=== PATIENT | female | born 2005 | race Caucasian/White ===

== ENCOUNTER 2025-08-15 23:41 | Emergency (ER) | payer OTHER, SELFPAY ==
--- NOTE | ~2025-08-15 | XR_ITS ---
CLINICAL HISTORY: cough 1 view chest x-ray Comparison: None provided Findings: No consolidation or effusion. Heart size is normal. No acute fracture. IMPRESSION: 1. No acute findings. This document has been electronically signed by: Dian Valencia MD on 08/16/2025 01:47:32
--- OUTSIDE RECORDS SUMMARY | 2025-08-15 23:41 | XMS_ITS | Encounter Summary ---
Author Organization [facility] Address [address] [place] [address] Phone Care Team Providers Care Can Sealer Name Role Phone Agnes Garcia MD Primary Care Provider [phone] Reason for Visit * Reason Comments ED Admission Encounter Details Date Type Department Care Team ([facility] Contact Info) Description 08/15/2025 11:41 PM EST - Present Emergency [facility] - Patient Ping Social History Tobacco Use [...] last 12 months, has t he electric, gas, oil, or water company threatened to shut off your services in [...] PM EDT documented as of this encounter Plan of Treatment Not on file documented as of this encounter Visit Diagnoses Not on filedocumented in this encounter Care Teams Can Sealer Relationship Specialty Start Date End Date Agnes Garcia MD [address] [place] [address] PCP - General Pediatrics 05/03/25 documented as of this encounter
[2025-08-15 23:43] VITALS: BP 118/58; PULSE 120; RESP 18; TEMP 38.1; O2SAT 97; BMI 35.7
--- OUTSIDE RECORDS SUMMARY | 2025-08-16 00:32 | XMS_ITS | Encounter Summary ---
Author Organization [facility] Address [address] [place] [address] Phone Care Team Providers Care Carpet Yarn Winder Operator Name Role Phone Agnes Garcia MD Primary Care Provider [phone] Encounter Details Date Type Department Care Team (Late st Contact Info) Description 03/01/2018 Conversion Encounter [facility] [address] [address] Mingo Ford DO [address] [place] [address] Social History Tobacco Use Types Packs/Day Years Used Date Smoking Tobacco: Never Assessed Comments Unknown Sex and Gender Information Value Date Recorded Sex Assigned at Not on file Legal Sex Female 6:10 PM EDT Gender Identity Not on file Sexual Orientation Straight 05/23/2021 12 :39 PM EDT documented as of this encounter Plan of Treatment Not on file documented as of this encounter Visit Diagnoses Not on filedocumented in this encounter Care Teams Carpet Yarn Winder Operator Relationship Specialty Start Date End Date Agnes Garcia MD [address] [place] [id number] PCP - General Pediatrics 05/03/25 documented as of this encounter
--- OUTSIDE RECORDS SUMMARY | 2025-08-16 00:32 | XMS_ITS | Clinical Summary ---
Author Organization [facility] Address [address] [place] [address] Phone Care Team Providers Care Buggy Loader Name Role Phone Agnes Garcia MD Primary Care Provider [phone] Allergies Active Allergy Reactions Criticality Noted Date Comments Environmental Low 04/23/2019 Cats dogs Medications ondansetron 4 MG tablet TK 1 T PO Q 4 TO 6 H PRF NAUSEA 0 9 Active Riboflavin (Vitamin B-2) 100 MG tabletIndicatio ns:Migraine with aura and without status migrainosus, not intractable Take 200 mg by mouth 2 (two) times a day. 120 tablet 2 2 Active Additional Information Patient not taking.Reported on 05/03/2025 Magnesium 500 MG capsuleIndicati ons:Chronic migraine with aura Take 1 capsule by mouth daily. 90 capsule 3 3 Active Additional Information Patient not taking.Reported on 05/03/2025 norethindrone (Incassia) 0.35 MG tabletIndicatio ns:Irregular periods Take 1 tablet (0.35 mg total) by mouth daily. 28 tablet 12 4 Active Additional Information Patient not taking.Reported on 05/03/2025 ferrous sulfate 325 (65 Fe) MG tabletIndicatio ns:Anemia, unspecified type TAKE 1 TABLET BY MOUTH TWICE A DAY 180 tablet 4 Active Additional Information Patient not taking.Reported on 05/03/2025 triamcinolone 0.1 % creamIndication s:Intrinsic atopic dermatitis Apply topically 2 (two) times a day as needed for irritation or rash. 15 g 1 Active Additional Information Patient not taking.Reported on 05/03/2025 omeprazole 20 MG delayed-release capsuleIndicati ons:Gastroesoph ageal reflux disease without esophagitis Take 1 capsule (20 mg total) by mouth daily. Take medicine one hour before eating. 30 capsule 2 5 08/01/20 25 Active Problems Problem Noted Date Diagnosed Date Anemia 11/13/2023 Assessment & Plan (05/15/2024 2:09 PM EDT): 11.3 today- reassuring! Irregular periods 05/23/2021 Assessment & Plan (07/05/2022 1:49 PM EDT): POP, prescribed elsewhere. Assessment & Plan (05/23/2021 12:35 PM EDT): Will start with screening labs to make sure no underlying cause. Discussed hormonal options to regulate and control symptoms, due to aura migraines would stay away from estrogen containing products. Will call with results and decide if she wants to start anything. Resolved Problems Problem Noted Date Diagnosed Date Resolved Date Rubella non-immune status, antepartum 11/13/2023 05/15/2024 PROM (premature rupture of membranes) 11/13/2023 05/15/2024 11/13/2023 05/15/2024 Maternal varicella, non-immune 11/13/2023 05/15/2024 LGA (large for gestational age) infant 11/13/2023 05/15/2024 Chronic migraine with aura 05/08/2022 0 05/15/2024 Overview (07/11/2022): Normal brain mri 06/2022. Assessment & Plan (07/05/2022 1:48 PM EDT): Had vision test done at eye doctor's-still hasnt ordered glasses yet. They felt migraines were not from her vision. More severe and persistent the last few months. Have been occurring for several years now. 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 Occur when she changes position when she wakes up in the morning.Wakes up with one. Throbbing, occipital or frontal. +photophobia, phonophobia. Not waking overnight with a GARLAND. No vomiting. hasnt taken the mag and b vitamin consistently. Dad with history of migraines as well. Discussed option of pursuing imaging with an MRI due to persistent daily headaches particularly because they occur right when she wakes up in the morning with position change. Dad agrees, will have our office schedule. Assessment & Plan (05/08/2022 4:42 PM EDT): Yana has been experiencing migraines for years now but they have been worsening in severity over the last year. I am concerned with the fact that she is having persistent morning headaches and headaches that worsening with activity. She has an eye exam scheduled for 05/13 and will keep me updated on the results of that visit. We discussed eye strain as having a role in headaches but I wouldn't imagine they would be causing early AM headaches. We reviewed the possibility of rebound headaches with chronic nsaid use. Given the severity, duration, and red flag in her history, I recommended ordering brain MRI. Grandmother is interested but she would first like to see how the eye exam goes before scheduling it. In the meantime, I will send a prescription for magnesium and b2 to take daily. Discussed adequate sleep, hydration, limiting screens, being aware of triggers and resting in dark room if possible at onset. Can use tylenol or ibuprofen as needed but be cautious about consistent use of it. Constipation 04/23/2019 05/15/2024 Assessment & Plan (04/23/2019 9:38 AM EDT): Controlled by diet Body mass index, pediatric, 85th percentile to less than 95th percentile for age 0704/23/201909/2019 Encounters Date Type Department Care Team Description 08/15/2025 11:41 PM EST - Present Emergency [facility] - Patient Ping 07/17/2025 11:22 AM EDT - 07/17/2025 4:20 PM EDT Emergency [facility] - Patient Ping 05/19/2025 [facility]phone [facility] [address] [address] Agnes Garcia MD No Show from Last 3 Months Immunizations Immunization Administration Dates Next Due DTaP 03/08/2011,07/21/2007 DTaP / Hep B / IPV 05/09/2006,03/13/2006, 006 HPV Vaccine 9 Valent 04/23/2019,12/09/2017 Hep A, ped/adol 07/21/2007,12/08/2006 Hib (PRP-T) 07/21/2007, 6,03/13/2006,01/10 IPV 03/08/2011 Influenza, injectable, MDCK, preservative free, quadrivalent 09/22/2020 Influenza, injectable, quadrivalent 08/05/2016,1 10/16/2013,07/01/2012 Influenza, injectable, quadr ivalent, preservative free 12/09/2017,07/19/2013,11/04/2011 Influenza, injectable, triva lent, preservative free 08/20/2008,08/04/2007,10/16/2006,09/09,08/07/2006 MMR 03/07/2010 MMRV 12/08/2006 Meningococcal B Bexsero 05/15/2024 Meningococcal Conj (Menactra) MCV4P 12/09/2017 Meningococcal Conj (Menveo) MCV4O 07/05/2022 PPD Test 04/23/2019 Pneumococcal Conjugate 07/21/2007,2005,03/13/2006,01/10 Pneumococcal Conjugate 13-Valent 03/07/2010 Tdap 12/09/2017 Varicella 03/07/2010 Family History Medical History Relation Name Comments No Known Problems Brother No Known Problems Father Alcoholism Maternal Grandfather Hypertension Maternal Grandfather Alcoholism Maternal Grandmother Diabetes Maternal Grandmother Hypertension Maternal Grandmother Alcoholism Mother Hypertension Mother Cancer Paternal Grandfather Relation Name Status Comments Brother Alive step brother Father Alive healthy age: 35 Father's Brother Alive healthy Father's Sister Alive healthy Maternal Grandfather Alive ETOH ag e: 49 diagnosed with Hypertension Maternal Grandmother Alive ETOH ag e: 49 diagnosed with Hypertension, DMII WO CMP NT ST UNCNTR Mother Alive healthy ulcer E IVAN and HTN age: 30 Other Alive Siblings: Healt hy 1/2 step-brother and another on the way Paternal Grandfather Alive cancer, bladder age: 51 diagnosed with MALIGNANT NEOPLASM NOS Paternal Grandmother Alive calcium deposits on her back age: 47 Social History Tobacco Use Types Packs/Day Years Used Date Smoking Tobacco: Never Smokeless Tobacco: Never Tobacco Cessation:Counseling Given: Not Answered Alcohol Use Standard Drinks/Week Comments Never 0 [...] Orientation Straight 05/23/2021 12 :39 PM EDT Last Filed Vital Signs Vital Sign Reading Time Taken Comments Blood Pressure 122/90 11/25/2024 5:55 PM EST Pulse 92 04/13/2024 12:58 PM EDT Temperature 36.3 C (97.4 F) 05/03/2025 10:39 AM EDT Respiratory Rate - - Oxygen Saturation 98% 04/13/2024 12: 58 PM EDT Inhaled Oxygen Concentration - - Weight 87.9 kg (193 lb 12.8 oz) 025 10:39 AM EDT Height 158.8 cm (5' 2.5 ) 05/15/2024 1:53 PM EDT Body Mass Index 34.88 05/15/2024 1:53 PM EDT Plan of Treatment Health Maintenance Due Date Last Done Comments HIV Screening 2020 Hepatitis C Screening 2023 Chlamydia and Gonorrhea Screening 10/13/2024 05/15/2024, 11/21/2022, 05/23/2021 Men B Vaccine (2 of 2 - Bexs ero SCDM 2-dose series) 11/15/2024 05/15/2024 Influenza Vaccines (#1) 2025 07/30/20 23, 09/22/2020, 12/09/2017, Additional history exists COVID-19 Vaccine (3 - 2024-2 6 season) 2025 05/27/2021, 04/20/2021 DTaP,Tdap,and Td Vaccines (8 - Td or Tdap) 08/21/2033 08/21/2023, 12/09/2017, 03/08/2011, Additional history exists Hepatitis B Vaccines Completed 05/09/2006, 03/13/2006, 01/10/2006 HIB Vaccines Completed 07/21/2007, 04/13, 03/13/2006, Additional history exists Hepatitis A Vaccines Completed 07/21/2007, 12/08/19 07 Pneumococcal Vaccine Completed 03/07/2010, 07/21/2007, 05/09/2006, Additional history exists Varicella Vaccines Completed 03/07/2010, 12/08/2006 IPV Vaccines Completed 03/08/2011, 04/13, 03/13/2006, Additional history exists HPV Vaccines Completed 04/23/2019, 12/09/2017 Meningococcal Vaccine Completed 07/05/2022, 018 MMR Vaccines Completed 09/18/2023, 02/11, 12/08/2006 Procedures * The patient is currently admitted. The information in this section might not be complete until the patient is discharged.Due to [place] Diversion law, this organization might not be sharing sensitive test results. Procedure Name Priority Date/Time Associated Diagnosis Comments CHLAMYDIA AND GONORRHEA, AMPLIFIED Routine 05/15/2024 2:38 PM EDT Encounter for screening examination for sexually transmitted disease from Last 3 Months or Most Recently Relevant to Health Maintenance Results * Due to [place] Diversion law, this organization might not be sharing sensitive test results. * Chlamydia and Gonorrhoea, Amplified (Urine) (05/15/2024 2:38 PM EDT) C trach HEATHER Negative Negative [facility] N gonorrhoeae HEATHER Negative Negative [facility] Urine (Urine, Random (not clean void)) 05/15/2024 2:38 PM EDT 05/15/2024 Comment:Urine, Rando Narrative [facility] - 05/17/2024 5:06 PM EDT Performed at: 01 - [facility] [address], [address], [place], [place] [id number] Loader Unloader: Bhupendra Rehman MD, Phone: [phone] us Agnes Garcia MD LAB MICROBIOLOGY - GENERAL ORD ERABLES Final Result Performing Organization Address City/State/[facility] Co de Phone Number [facility] [address] [place] [address] from Last 3 Months or Most Recently Relevant to Health Maintenance [facility] Address: [address] [address] [place] [address] [facility] NON PCC [facility] NON PCC [facility]CO [facility] Address: [address] [address] [place] [address] Care Teams Buggy Loader Relationship Specialty Start Date End Date Agnes Garcia MD [address] [place] [id number] PCP - General Pediatrics 05/03/25
--- OUTSIDE RECORDS SUMMARY | 2025-08-16 00:32 | XMS_ITS | Clinical Summary ---
Author Organization [facility] ity Address [address] [place] [address] Care Team Providers Care Infrastructure Consultant Name Role Phone Brenna Wilder VEGETABLE FARMING SUPERVISOR Primary Care Provider [phone] Social History Tobacco Use Types Packs/Day Years Used Date Smoking Tobacco: Never Assessed Comments Unknown Sex and Gender Information Value Date Recorded Sex Assigned at Not on file Legal Sex Female 8:43 PM EST Gender Identity Not on file Sexual Orientation Not on file Plan of Treatment Health Maintenance Due Date Last Done Comments Gonorrhea/Chlamydia Screening 2005 Varicella Vaccines (1 of 2 - 13+ 2-dose series) 2018 HPV Vaccines (1 - 3-dose series) 2020 Meningococcal B Vaccine (1 o f 2 - Standard) 2021 Depression Screening 10/13/2024 DTaP,Tdap,and Td Vaccines (1 - Tdap) 2024 Hepatitis B Vaccines (1 of 3 - 19+ 3-dose series) 2024 COVID-19 Vaccine (1 - 2023-2 5 season) 2025 Influenza Vaccine (#1) 2025 RSV Immunization Adult Patie nts (1 - 1-dose 75+ series) 2080 HIB Vaccines Aged Out No longer eligi ble based on patient's age to complete this topic Hepatitis A Vaccines Aged Out No long er eligible based on patient's age to complete this topic IPV Vaccines Aged Out No longer eligi ble based on patient's age to complete this topic MMR Vaccines Aged Out No longer eligi ble based on patient's age to complete this topic Meningococcal ACWY Vaccine Aged Out N o longer eligible based on patient's age to complete this topic Pneumococcal Vaccine: Pediat rics (0 to 5 Years) and At-Risk Patients (6 to 49 Years) Aged Out No longer eligible b ased on patient's age to complete this topic RSV Immunization Patients Un bhargavi 20 months Aged Out No longer eligible b ased on patient's age to complete this topic Care Teams Infrastructure Consultant Relationship Specialty Start Date End Date Brenna Wilder FNP [address] [place] [address] [place] [id number] PCP - General 04/04/23
[2025-08-16 00:34] LABS: MANUAL DIFF FLAG NO
[2025-08-16 00:36] LABS: Hematocrit 38.7 % (37.0-47.0); Hemoglobin 12.7 g/dl (12.0-16.0); Imm Gran Abs Auto 0.02 X10*3/uL (0.00-0.03); Imm Gran Pct Auto 0.4 % (0.0-0.4); Lymphocytes Absolute Auto 0.6 X10*3/uL (1.2-4.9); Mean Corpuscular HGB Conc 32.8 g/dl (31.0-35.0); Mean Corpuscular Hemoglobin 27.1 pg (27.0-33.0); Mean Corpuscular Volume 82.5 fL (80.0-98.0); NRBC Abs Auto 0.000 X10*3/uL (0.0-0.012); NRBC Pct Auto 0.0 /100WBC (0.0-0.2); Platelet Count 177 X10*3/uL (160-400); Red Blood Count 4.69 X10*6/uL (4.20-5.50); White Blood Count 5.1 X10*3/uL (4.8-10.8)
[2025-08-16 00:50] VITALS: TEMP 38.7
[2025-08-16 00:55] LABS: Appearance Urine Clear; Glucose Urine UA Negative (Negative); PH 5.5 (5.0-9.0); Specific Gravity - Urine 1.015 (1.005-1.025)
[2025-08-16 00:58] LABS: Anion Gap 13 (12-20); Calcium 9.3 mg/dL (8.4-10.2); Carbon Dioxide 23 mmol/L (22-29); Chloride 108 mmol/L (96-108); Potassium 3.6 mmol/L (3.3-5.1); Sodium 140 mmol/L (135-145); Total Protein 8.2 g/dL (6.5-8.0)
[2025-08-16 01:04] LABS: Alanine Aminotransferase 35 U/L (0-31); Albumin Level 5.1 g/dL (3.5-5.0); Alkaline Phosphatase 58 U/L (39-117); Aspartate Amino Transferase 27 U/L (5-31); Blood Urea Nitrogen 9 mg/dL (9-16); Creatinine Clr Calc Pharmacy 115.3; Estimated Glomerular Filt Rate > 60; Magnesium 2.0 mg/dL (1.6-2.6)
[2025-08-16 01:15] LABS: COVID-19 Test Negative (Negative); IDNOW Serial# 55D5AD1C
[2025-08-16 01:18] LABS: IDNOW Serial# 58CA691E; Influenza B2 Negative (Negative)
--- NOTE | 2025-08-16 01:48 | ED.GENADULT ---
HPI - General Adult General Chief complaint: Nausea/Vomiting/Diarrhea Stated complaint: n/v/d Time Seen by Provider: 08/16/25 00:05 Source: patient Limitations: no limitations History of Present Illness ED Provider: Davina Milligan PA-C HPI narrative: 19-year-old female presents with fever and chills since this morning. Patient states she was not feeling well this morning, throughout the day her symptoms escalated. She developed shaking chills, nausea vomiting and diarrhea. Generalized malaise with myalgias with a headache. Associated dry cough. Denies abdominal pain or sick contacts with similar symptoms. Denies recent travel out of the country, hospitalization or use of antibiotics. Related Data Previous Rx's ?Medication ?Instructions ?Recorded dicyclomine 20 mg tablet 20 mg PO BID PRN abdominal pain #7 08/16/25 tabs ondansetron 4 mg disintegrating 4 mg PO Q8H PRN nausea and 08/16/25 tablet vomiting #10 tabs Allergies Allergy/AdvReac Type Severity Reaction Status Date / Time No Known Allergies Allergy Verified 08/15/25 23:46 Review of Systems Review of Systems: Yes all other systems are reviewed and are negative Constitutional: Constitutional: Reports fatigue, Reports fever(s) and Reports malaise Cardiovascular: Cardiovascular: Denies chest pain and Denies dyspnea Respiratory: Respiratory: Denies chest congestion, Reports cough, Denies dyspnea and Denies wheezing Gastrointestinal: Gastrointestinal: Denies abdominal pain, Reports GI cramping, Reports diarrhea, Reports nausea and Reports vomiting Endocrine: Endocrine: Reports fatigue Allergic/Immunologic: Allergic/Immunologic: Denies wheezing PMFSH Past Medical History Attestation statement: The following information was validated with the patient. Social History Social History Advance Directives: No Advance Directives Information Provided: Yes Advance Directives on File: No Physical Exam ED Vital Signs: Vital Signs - 24 hr 08/15/25 23:43 08/16/25 00:50 08/16/25 02:28 Temperature 100.5 F H 101.6 F H 98.2 F Pulse Rate 120 H 97 Respiratory Rate 18 18 Blood Pressure 118/58 L 106/55 L Pulse Oximetry 97 97 Oxygen Delivery Method Room Air Room Air 08/16/25 02:50 Temperature 98.2 F Pulse Rate 97 Respiratory Rate 18 Blood Pressure 106/55 L Pulse Oximetry 97 Oxygen Delivery Method Room Air BMI result Body Mass Index 35.7 Const Other: Alert Orientation/consciousness: patient oriented x3 Resp Other: Lungs clear to auscultation no wheezing Effort & Inspection: normal respiratory effort Cardio Other: Normal peripheral perfusion GI Other: Abdomen is soft, nondistended, nontender no guarding Skin Other: Warm dry no rash Neuro General: patient oriented x3, gait normal, no focal motor deficits and CN's II-XI intact bilaterally Psych Other: Cooperative Course Reevaluation(s) Reevaluation #1: At 12:27 . a.m. a sepsis focused exam was performed, in addition to screening labs, adding on blood cultures and a lactic. The patient will receive weight based IV fluids, Tylenol for fever and starting empiric ceftriaxone while we determine a source Time: 00:27 Medications Administered Discontinued Medications Generic Name Dose Route Start Last Admin Trade Name Freq PRN Reason Stop Dose Admin Sodium Chloride 2,653.53 mls @ 2,653.53 mls/hr 08/16/25 00:05 08/16/25 02:16 Ns 30 ml/kg infuse over 1 hr (2653.53 ml) 08/16/25 01:04 Infused IV Infusion .Q1H STA Acetaminophen 1,000 mg in 100 mls @ 400 mls/hr 08/16/25 00:05 08/16/25 00:35 Ofirmev IV 08/16/25 00:19 Infused ONCE ONE Infusion Ceftriaxone Sodium 2 gm/ 50 mls @ 100 mls/hr 08/16/25 00:27 08/16/25 01:06 Sodium Chloride IV 08/16/25 00:56 Infused ONCE ONE Infusion Ondansetron HCl 4 mg 08/16/25 00:05 08/16/25 00:19 Ondansetron Hcl 4 Mg/2 Ml Vial IVPUSH 08/16/25 00:06 4 mg ONCE ONE Administration Medical Decision Making Medical Decision Making MDM Narrative: 19-year-old female presents with fever and chills since this morning. Patient states she was not feeling well this morning, throughout the day her symptoms escalated. She developed shaking chills, nausea vomiting and diarrhea. Generalized malaise with myalgias with a headache. Associated dry cough. Denies abdominal pain or sick contacts with similar symptoms. Denies recent travel out of the country, hospitalization or use of antibiotics. No chronic issues History: Per patient I have considered the following differential diagnoses: Viral syndrome, pneumonia, UTI, acute intra-abdominal pathology, viral gastroenteritis, traveler's diarrhea, C diff Plan: Given the rapid onset with a constellation of symptoms, the patient likely has viral syndrome. In addition to screening labs, we will be adding on a viral panel. However at this time the patient meets sepsis criteria, she is febrile and tachycardic, adding on blood cultures and a lactic, giving weight based IV fluid therapy, Tylenol and we will start empiric ceftriaxone. We will screened for additional potential sources,, adding chest x-ray and urinalysis. Her abdominal exam is benign, she does not require a CT scan barrier she also has no risk factors for C diff or traveler's diarrhea. I have independently reviewed the following tests: Labs: No overall leukocytosis, left shift noted, not anemic, no electrolyte abnormality, urine not infected, positive for influenza A Chest x-ray:Findings: No consolidation or effusion. Heart size is normal. No acute fracture. IMPRESSION: 1. No acute findings. Differential Diagnosis Differential Diagnoses: The differential diagnosis associated with the presentation includes See medical decision-making Admission/Observation Consideration of admission/observation: Escalation of care including admission/observation considered Not applicable Lab Data MDM Lab Attestation statement: I reviewed the patient's lab results. 08/16/25 00:10 08/16/25 00:10 Labs: Lab Results 08/16/25 08/16/25 Range/Units 00:10 00:48 WBC 5.1 (4.8-10.8) X10*3/uL RBC 4.69 (4.20-5.50) X10*6/uL Hgb 12.7 (12.0-16.0) g/dl Hct 38.7 (37.0-47.0) % MCV 82.5 (80.0-98.0) fL MCH 27.1 (27.0-33.0) pg MCHC 32.8 (31.0-35.0) g/dl RDW 13.7 (11.0-16.0) % Plt Count 177 (160-400) X10*3/uL MPV 12.1 (9.4-12.3) fL Immature Gran % (Auto) 0.4 (0.0-0.4) % Neut % (Auto) 75.2 H (45-73) % Lymph % (Auto) 10.8 L (20-40) % [place] % (Auto) 11.6 H (2-11) % Eos % (Auto) 1.4 (0-4) % Baso % (Auto) 0.6 (0-2) % Lymph # (Auto) 0.6 L (1.2-4.9) X10*3/uL [place] # (Auto) 0.6 (0.1-1.2) X10*3/uL Eos # (Auto) 0.1 (0.0-0.4) X10*3/uL Baso # (Auto) 0.0 (0.0-0.2) X10*3/uL Abs Immat Gran (auto) 0.02 (0.00-0.03) X10*3/uL Absolute Neuts (auto) 3.8 (2.0-8.3) x10*3/uL Absolute Nucleated RBC 0.000 (0.0-0.012) X10*3/uL Nucleated RBC % (auto) 0.0 (0.0-0.2) /100WBC Sodium 140 (135-145) mmol/L Potassium 3.6 (3.3-5.1) mmol/L Chloride 108 (96-108) mmol/L Carbon Dioxide 23 (22-29) mmol/L Anion Gap 13 (12-20) BUN 9 (9-16) mg/dL Creatinine 0.81 (0.5-1.4) mg/dL Estim Creat Clear Calc 115.3 Estimated GFR > 60 Random Glucose 106 (60-115) mg/dL Lactic Acid 1.3 (0.5-2.0) mmol/L Calcium 9.3 (8.4-10.2) mg/dL Magnesium 2.0 (1.6-2.6) mg/dL Total Bilirubin 0.3 (0.0-1.0) mg/dL AST 27 (5-31) U/L ALT 35 H (0-31) U/L Alkaline Phosphatase 58 (39-117) U/L Total Protein 8.2 H (6.5-8.0) g/dL Albumin 5.1 H (3.5-5.0) g/dL Beta HCG, Quant < 2 mIU/mL Urine Color Yellow Urine Appearance Clear Urine pH 5.5 (5.0-9.0) Ur Specific [place] 1.015 (1.005-1.025) Urine Protein Trace (Neg-Trace) mg/dL Urine Glucose (UA) Negative (Negative) mg/dL Urine Ketones Negative (Negative) mg/dL Urine Blood Negative (Negative) Urine Nitrite Negative (Negative) Ur Leukocyte Esterase Negative (Negative) COVID-19 (HEATHER) Negative (Negative) COVID-19 Clin Com See Note Influenza Type A (PIOTR) Positive A (Negative) Influenza Type B (PIOTR) Negative (Negative) Influenza A & B Note See Note Radiology Impression Discussion of test interpretation with radiology: I have reviewed the radiologist's reading. Discharge Plan Discharge Clinical Impression: Influenza A Patient Disposition: Home, Self-Care Instructions: Influenza (ED) Additional Instructions: You tested positive for influenza A. See home care instructions. Viral illnesse is self-limiting. You require supportive care; rest, increase fluids, treat your fever as it comes. Use the Zofran as needed for nausea, use the dicyclomine as needed for abdominal cramping and diarrhea. Follow up with your primary care as needed. Prescriptions: New ondansetron 4 mg tablet,disintegrating 4 mg PO Q8H PRN (Reason: nausea and vomiting) Qty: 10 0RF dicyclomine 20 mg tablet 20 mg PO BID PRN (Reason: abdominal pain) Qty: 7 0RF Stand Alone Forms: Work/School Release Interventions: ED Discharge Assessment Last Done: 08/16/25 02:50 Discharge Date/Time: 08/16/25 02:51 Print Language: Micronesian
[2025-08-16 02:28] VITALS: BP 106/55; PULSE 97; RESP 18; TEMP 36.8; O2SAT 97
[2025-08-16 02:50] VITALS: BP 106/55; PULSE 97; RESP 18; TEMP 36.8; O2SAT 97
== END 2025-08-16 02:51 | disposition home or self-care (01) ==
PROVIDERS: Physician Assistant Medical; Emergency Provider Emergency Medicine
DX: J10.1 Influenza due to other identified influenza virus with other respiratory manifestations (principal)
CPT/HCPCS: 36415; 71045; 80053; 81003; 83605; 83735; 84702; 85025; 87040; 87502; 87635; 96361; 96365; 96375; 99284; J0131; J0696; J2405

== ENCOUNTER 2025-08-16 16:01 | Emergency (ER) | payer OTHER, SELFPAY ==
--- OUTSIDE RECORDS SUMMARY | 2025-08-15 23:41 | XMS_ITS | Encounter Summary ---
Author Organization [facility] Address [address] [place] [address] Phone Care Team Providers Care Extension Course Counselor Name Role Phone Agnes Garcia MD Primary Care Provider [phone] Reason for Visit * Reason Comments ED Admission Encounter Details Date Type Department Care Team ([facility] Contact Info) Description 08/15/2025 11:41 PM EST - 08/16/2025 2:51 AM EST Emergency [facility] - Patient Ping Social History Tobacco Use Types Packs/Day Years Used Date Smoking Tobacco: Never Smokeless Tobacco: Never Alcohol Use Standard Drinks/Week Comments Never 0 (1 standard drink = 0.6 oz pur e alcohol) Hunger/Food Answer Date Recorded In the last 12 months, did y ou or your family ever eat less than you felt you should because there wasn't enough money for food? No 05/15/2024 Stable Housing Answer Date Recorded Are you worried that in the next 2 months you may not have stable housing? No 05/15/2024 Transportation Concerns Answer Date Rec orded In the last 12 months, have you or your family ever had to go without healthcare because you didn't have a way to get there? No 05/15/2024 Hazards in Home Answer Date Recorded Think about the place you li ve. Do you have problems with any of the following? Pests (mice or roaches), mold, no/not working smoke detectors, water leaks, no window guards. No 2023 Financing Utilities Answer Date Recorde d In the last 12 months, has t he electric, [employer], oil, or water [employer] threatened to shut off your services in your home? No 05/15/2024 Safety at Home Answer Date Recorded Are you or your family worried about feeling saf e in your home? No 05/15/2024 Outside Support Answer Date Recorded Do you feel that you need mo re support from other people or programs to help you care for yourself or your family? No 05/15/2024 Understanding Health Concerns Answer Da te Recorded Do you need help understandi ng your or your child's healthcare needs (diagnosis, medications, plan, etc.)? No 05/15/2024 Financing Health Concerns Answer Date R ecorded In the last 12 months, was t here a time when your child needed to see a doctor or get medications or supplies but could not because of cost? No 05/15/2024 Missing School or Work Answer Date Florentino rded Did you or your child miss s chool or work because of a health problem that could have been avoided? No 05/15/2024 Child Education Answer Date Recorded Do you have concerns about y our/your child's learning or behavior in school, preschool, or daycare? No 05/15/2024 Comments No Sex and Gender Information Value Date Recorded Sex Assigned at Not on file Legal Sex Female 6:10 PM EDT Gender Identity Not on file Sexual Orientation Straight 05/23/2021 12 :39 PM EDT documented as of this encounter Medications at Time of Discharge ferrous sulfate 325 (65 Fe) MG tabletIndications :Anemia, unspecified type TAKE 1 TABLET BY MOUTH TWICE A DAY 180 tablet 10/07/2024 Magnesium 500 MG capsuleIndication s:Chronic migraine with aura Take 1 capsule by mouth daily. 90 capsule 3 02/06/2023 norethindrone (Incassia) 0.35 MG tabletIndications :Irregular periods Take 1 tablet (0.35 mg total) by mouth daily. 28 tablet 12 07/28/2024 ondansetron 4 MG tablet TK 1 T PO Q 4 TO 6 H PRF NAUSEA 0 07/19/2019 Riboflavin (Vitamin B-2) 100 MG tabletIndications :Migraine with aura and without status migrainosus, not intractable Take 200 mg by mouth 2 (two) times a day. 120 tablet 2 05/08/2022 triamcinolone 0.1 % creamIndications: Intrinsic atopic dermatitis Apply topically 2 (two) times a day as needed for irritation or rash. 15 g 1 11/25/2024 documented as of this encounter Plan of Treatment Not on file documented as of this encounter Visit Diagnoses Not on filedocumented in this encounter Care Teams Extension Course Counselor Relationship Specialty Start Date End Date Agnes Garcia MD [address] [place] [address] PCP - General Pediatrics 05/03/25 documented as of this encounter
[2025-08-16] VITALS (7 sets, daily range): BP systolic 96–132; BP diastolic 51–62; PULSE 72–101; RESP 16–20; TEMP 36.9–38.7; O2SAT 97–98; BMI 35.7
--- OUTSIDE RECORDS SUMMARY | 2025-08-16 16:01 | XMS_ITS | Encounter Summary ---
Author Organization [facility] Address [address] [place] [address] Phone Care Team Providers Care Road Freight Brake Coupler Name Role Phone Agnes Garcia MD Primary Care Provider [phone] Reason for Visit * Reason Comments ED Admission Encounter Details Date Type Department Care Team ([facility] Contact Info) Description 08/16/2025 4:01 PM EST - Present Emergency [facility] - Patient Ping Social History Tobacco [...] on filedocumented in this encounter Care Teams Road Freight Brake Coupler Relationship Specialty Start Date End Date Agnes Garcia MD [address] [place] [id number] PCP - General Pediatrics 05/03/25 documented as of this encounter
--- NOTE | 2025-08-16 16:16 | ED.GENADULT ---
HPI - General Adult General Chief complaint: General Medical Stated complaint: fever/dizzy stomach pain Time Seen by Provider: 08/16/25 20:09 Source: patient and family Mode of arrival: ambulatory Limitations: no limitations History of Present Illness ED Provider: DR. Sweeney HPI narrative: This is a 19-year-old female was seen yesterday in our emergency department for flu-like symptoms and patient tested positive for flu A patient was discharged home with appropriate instruction to use at home, returned for persistent fever that patient could not control at home with feeling nauseous, patient also is complaining of frequency of urination with dysuria. No CP, no SOB, no abdominal pain, feeling nauseous with no appetite, +generalized body weakness. No recent travel, no sick contacts. Related Data Previous Rx's ?Medication ?Instructions ?Recorded dicyclomine 20 mg tablet 20 mg PO BID PRN abdominal pain #7 08/16/25 tabs ondansetron 4 mg disintegrating 4 mg PO Q8H PRN nausea and 08/16/25 tablet vomiting #10 tabs oseltamivir 75 mg capsule (Tamiflu) 75 mg PO Q12H 5 days #10 caps 08/16/25 Allergies Allergy/AdvReac Type Severity Reaction Status Date / Time No Known Allergies Allergy Verified 08/16/25 16:19 Review of Systems Review of Systems: All other systems are reviewed and are negative Constitutional: Reports as per HPI and Reports no additional constitutional complaints Eyes: Reports as per HPI and Reports no additional eye complaints Reports system reviewed and no additional complaints, except as documented Cardiovascular: Reports as per HPI and Reports no additional cardiovascular complaints Respiratory: Reports as per HPI and Reports no additional respiratory complaints Gastrointestinal: Reports as per HPI and Reports no additional gastrointestinal complaints Genitourinary: Reports no additional female genitourinary complaints Musculoskeletal: Reports no additional musculoskeletal complaints Skin/Breast: Reports system reviewed and no additional complaints, except as docu Psychiatric: Reports no additional psychiatric complaints Endocrine: Reports no additional endocrine complaints Hematologic/Lymphatic: Reports no additional hematologic/lymphatic complaints Allergic/Immunologic: Reports no additional allergic/immunologic complaints Reports system reviewed and no additional complaints, except as documented and Reports Abnormal speech present [facility] Social History Social History Advance Directives: No Advance Directives Information Provided: No Do you have a plan to hurt others: No Plan Physical Exam ED Vital Signs: Vital Signs - 24 hr 08/16/25 16:15 08/16/25 19:33 08/16/25 20:12 Temperature 101.6 F H 99.0 F 98.6 F Pulse Rate 101 H 88 81 Respiratory Rate 20 18 18 Blood Pressure 132/62 106/51 L 104/54 L Pulse Oximetry 97 97 97 Oxygen Delivery Method Room Air Room Air Room Air 08/16/25 21:30 08/16/25 22:18 Temperature 98.4 F 98.4 F Pulse Rate 72 Respiratory Rate 16 Blood Pressure 96/51 L Pulse Oximetry 98 Oxygen Delivery Method Room Air BMI result Body Mass Index 35.7 Vital signs have been reviewed and appear to be correct. Blood pressure elevated. Heart rate normal. Respiratory rate normal. Temperature normal. Oxygen saturation normal. Appearance: Alert. Oriented X3. No acute distress. Head: Normal external exam. Normocephalic. Atraumatic. No Lam signs noted. No raccoon eyes noted Eyes: PERRLA. EOMI. Conjunctiva and sclera normal. Eyelids normal. ENT: TM's Normal. Pharynx normal. Uvula midline. Moist mucous membranes. No trismus noted. No drooling noted. No muffled voice noted. Neck: Normal inspection. Neck supple. FROM. No adenopathy. Thyroid Normal. No meningeal signs. No neck mass noted. CVS: Normal heart rate and rhythm. Heart sound normal. No murmurs noted. Pulses normal throughout. Respiratory: No respiratory distress. Painless inspiration. Breath sounds normal. No wheezes/rales/rhonchi noted. Chest nontender. No accessory muscle usage noted or decreased air movement noted. Abdomen: Soft and nontender. Bowel sounds normal in all 4 quadrants. No distention noted. No organomegaly noted. No visible injury noted. Back: No CVA tenderness. Full range of motion noted. Skin: Skin warm and dry. Normal skin color. Normal skin turgor. No rashes/lesions/lacerations noted. Extremities: No lower extremity edema. Extremities exhibit normal range of motion. Extremities nontender. Neuro: Oriented X 3. Cranial nerve exam: II-XII are grossly intact No motor deficit. No sensory deficit. Reflexes normal. Course Course Course Narrative: This is a rapid medical exam performed by Aimee Gabriel NP: Additional HPI, ROS, PE not included below will be deferred to primary provider. Patient is a 19-year-old female diagnosed with influenza A here yesterday presenting with reported fevers of 104, 106 despite alternating Tylenol and ibuprofen. Last took Tylenol at 2pm. Reports fecal incontinence. Prescribed bentyl and zofran yesterday. Temp 101.6 in triage. Sxs started Friday night. Plan: labs Reevaluation(s) Reevaluation #1: 19-year-old female otherwise healthy presented yesterday with flu-like symptoms and was positive for flu A, since symptoms started 1 day ago will start on Tamiflu, patient was instructed to continue with supportive care of drinking plenty of fluids using [id number] Tylenol/ibuprofen to control fever. Patient is already off work for the next few days. Time: 23:25 Medications Administered Discontinued Medications Generic Name Dose Route Start Last Admin Trade Name Freq PRN Reason Stop Dose Admin Al Hydroxide/Mg Hydroxide 30 ml 08/16/25 20:39 08/16/25 21:04 Magnesium Hydrox/Alum Hydrox 30 Ml Oral.Susp PO 08/16/25 20:40 30 ml ONCE ONE Administration Sodium Chloride 1,000 mls @ 999 mls/hr 08/16/25 20:27 08/16/25 22:20 Ns IV 08/16/25 21:27 Infused .Q1H1M ONE Infusion Acetaminophen 1,000 mg in 100 mls @ 400 mls/hr 08/16/25 20:27 08/16/25 21:15 Ofirmev IV 08/16/25 20:41 Infused ONCE ONE Infusion Ibuprofen 600 mg 08/16/25 16:21 08/16/25 16:23 Ibuprofen 600 Mg Tablet PO 08/16/25 16:22 600 mg ONCE ONE Administration Ondansetron HCl 4 mg 08/16/25 20:35 08/16/25 20:58 Ondansetron Hcl 4 Mg/2 Ml Vial IVPUSH 08/16/25 20:36 4 mg ONCE ONE Administration Medical Decision Making Differential Diagnosis Differential Diagnoses: The differential diagnosis associated with the presentation includes (Influenza a, pneumonia, electrolyte derangement, dehydration, severe anemia, strep pharyngitis.) Admission/Observation Consideration of admission/observation: Escalation of care including admission/observation considered Lab Data MDM Lab Attestation statement: I reviewed the patient's lab results. 08/16/25 16:34 08/16/25 16:34 Labs: Lab Results 08/16/25 08/16/25 08/16/25 Range/Units 16:34 21:03 21:04 WBC 3.8 L (4.8-10.8) X10*3/uL RBC 4.31 (4.20-5.50) X10*6/uL Hgb 11.6 L (12.0-16.0) g/dl Hct 35.2 L (37.0-47.0) % MCV 81.7 (80.0-98.0) fL MCH 26.9 L (27.0-33.0) pg MCHC 33.0 (31.0-35.0) g/dl RDW 13.9 (11.0-16.0) % Plt Count 145 L (160-400) X10*3/uL MPV 12.0 (9.4-12.3) fL Immature Gran % (Auto) 0.5 H (0.0-0.4) % Neut % (Auto) 83.4 H (45-73) % Lymph % (Auto) 5.9 L (20-40) % [place] % (Auto) 9.9 (2-11) % Eos % (Auto) 0.0 (0-4) % Baso % (Auto) 0.3 (0-2) % Lymph # (Auto) 0.2 L (1.2-4.9) X10*3/uL [place] # (Auto) 0.4 (0.1-1.2) X10*3/uL Eos # (Auto) 0.0 (0.0-0.4) X10*3/uL Baso # (Auto) 0.0 (0.0-0.2) X10*3/uL Abs Immat Gran (auto) 0.02 (0.00-0.03) X10*3/uL Absolute Neuts (auto) 3.1 (2.0-8.3) x10*3/uL Absolute Nucleated RBC 0.000 (0.0-0.012) X10*3/uL Nucleated RBC % (auto) 0.0 (0.0-0.2) /100WBC Sodium 138 (135-145) mmol/L Potassium 3.3 (3.3-5.1) mmol/L Chloride 111 H (96-108) mmol/L Carbon Dioxide 21 L (22-29) mmol/L Anion Gap 9 L (12-20) BUN 5 L (9-16) mg/dL Creatinine 0.72 (0.5-1.4) mg/dL Estim Creat Clear Calc 129.9 Estimated GFR > 60 Random Glucose 111 (60-115) mg/dL Lactic Acid 0.9 (0.5-2.0) mmol/L Calcium 8.4 D (8.4-10.2) mg/dL Total Bilirubin 0.2 (0.0-1.0) mg/dL AST 26 (5-31) U/L ALT 29 (0-31) U/L Alkaline Phosphatase 49 (39-117) U/L Total Protein 7.3 (6.5-8.0) g/dL Albumin 4.4 (3.5-5.0) g/dL Beta HCG, Quant < 2 mIU/mL Urine Color Yellow Urine Appearance Clear Urine pH 5.5 (5.0-9.0) Ur Specific [place] 1.010 (1.005-1.025) Urine Protein Negative (Neg-Trace) mg/dL Urine Glucose (UA) Negative (Negative) mg/dL Urine Ketones 15 (Negative) mg/dL Urine Blood Negative (Negative) Urine Nitrite Negative (Negative) Ur Leukocyte Esterase Negative (Negative) Urine RBC 0-2 (0-2) /HPF Urine WBC 0-5 (0-5) /HPF Ur Squamous Epith Cells 0-2 (0-2) /HPF Urine Bacteria None Seen (None Seen) Hyaline Casts 0-2 (0-2) /LPF S. pyogenes GrpA PIOTR Negative (Negative) Independent Interpretation I performed an independent interpretation of an: Plain X-Ray (Chest done on 08/16: No acute intrathoracic pathology.) Radiology Impression Discussion of test interpretation with radiology: I have reviewed the radiologist's reading. Discharge Plan Discharge Clinical Impression: Influenza A Patient Disposition: Home, Self-Care Instructions: Influenza (ED) Additional Instructions: Drink plenty of fluids. Take Tylenol 500 mg tablet every 6 hours if needed for fever you can alternate with ibuprofen 200 mg tablet every 6 hours if needed for pain. Use face mask and frequent hand wash. Keep social distancing. Self quarantine for the next 3 days at home. Prescriptions: New oseltamivir [Tamiflu] 75 mg capsule 75 mg PO Q12H 5 Days Qty: 10 0RF No Action ondansetron 4 mg tablet,disintegrating 4 mg PO Q8H PRN (Reason: nausea and vomiting) Qty: 10 0RF dicyclomine 20 mg tablet 20 mg PO BID PRN (Reason: abdominal pain) Qty: 7 0RF Print Language: Indonesian
[2025-08-16 16:41] LABS: MANUAL DIFF FLAG NO
[2025-08-16 16:42] LABS: Hematocrit 35.2 % (37.0-47.0); Hemoglobin 11.6 g/dl (12.0-16.0); Imm Gran Abs Auto 0.02 X10*3/uL (0.00-0.03); Imm Gran Pct Auto 0.5 % (0.0-0.4); Lymphocytes Absolute Auto 0.2 X10*3/uL (1.2-4.9); Mean Corpuscular HGB Conc 33.0 g/dl (31.0-35.0); Mean Corpuscular Hemoglobin 26.9 pg (27.0-33.0); Mean Corpuscular Volume 81.7 fL (80.0-98.0); NRBC Abs Auto 0.000 X10*3/uL (0.0-0.012); NRBC Pct Auto 0.0 /100WBC (0.0-0.2); Platelet Count 145 X10*3/uL (160-400); Red Blood Count 4.31 X10*6/uL (4.20-5.50); White Blood Count 3.8 X10*3/uL (4.8-10.8)
[2025-08-16 17:10] LABS: Alanine Aminotransferase 29 U/L (0-31); Albumin Level 4.4 g/dL (3.5-5.0); Alkaline Phosphatase 49 U/L (39-117); Anion Gap 9 (12-20); Aspartate Amino Transferase 26 U/L (5-31); Blood Urea Nitrogen 5 mg/dL (9-16); Calcium 8.4 mg/dL (8.4-10.2); Carbon Dioxide 21 mmol/L (22-29); Chloride 111 mmol/L (96-108); Creatinine Clr Calc Pharmacy 129.9; Estimated Glomerular Filt Rate > 60; Potassium 3.3 mmol/L (3.3-5.1); Sodium 138 mmol/L (135-145); Total Protein 7.3 g/dL (6.5-8.0)
--- OUTSIDE RECORDS SUMMARY | 2025-08-16 19:56 | XMS_ITS | Encounter Summary ---
Author Organization [facility] Address [address] [place] [phone] Phone Care Team Providers Care Fountain Server Name Role Phone Agnes Garcia MD Primary Care Provider [phone] Encounter Details Date Type Department Care Team (Late st Contact Info) Description 03/01/2018 Conversion Encounter [facility] [address] [address] [place] Ford DO [address] [place] [id number] Social History Tobacco Use Types Packs/Day Years [...] on filedocumented in this encounter Care Teams Fountain Server Relationship Specialty Start Date End Date Agnes Garcia MD [address] [place] [id number] PCP - General Pediatrics 05/03/25 documented as of this encounter
--- OUTSIDE RECORDS SUMMARY | 2025-08-16 19:56 | XMS_ITS | Clinical Summary ---
Author Organization [facility] Address [address] [place] [phone] Phone Care Team Providers Care Long Term Care Administrator Name Role Phone Agnes Garcia MD Primary Care Provider [phone] Allergies Active Allergy Reactions Criticality Noted Date [...] occurring for several years now. Still occurring mechanist and end of the day. Occur when [...] Encounters Date Type Department Care Team Description 08/16/2025 4:01 PM EST - Present Emergency [facility] - Patient Ping 08/15/2025 11:41 PM EST - 08/16/2025 2:51 AM EST Emergency [facility] - Patient Ping 07/17/2025 11:22 AM EDT - 07/17/2025 4:20 PM EDT Emergency [facility] - Patient Ping 05/19/2025 Telephone [facility] [phone] Agnes Garcia MD No Show from Last [...] series) 11/15/2024 05/15/2024 Influenza Vaccines (#1) 2025 07/30/20, 09/22/2020, 12/09/2017, Additional history exists COVID-19 Vaccine [...] complete until the patient is discharged.Due to [facility] law, this organization might not be sharing sensitive test results. Procedure Name Priority Date/Time Associated Diagnosis Comments CHLAMYDIA AND GONORRHEA, AMPLIFIED Routine 05/15/2024 2:38 PM EDT Encounter for screening examination for sexually transmitted disease from Last 3 Months or Most Recently Relevant to Health Maintenance Results * Due to [place] [employer] law, this organization might not be sharing sensitive test results. * Chlamydia and Gonorrhoea, Amplified (Urine) (05/15/2024 2:38 PM EDT) C trach HEATHER Negative Negative [facility] N gonorrhoeae HEATHER Negative Negative [facility] Urine (Urine, Random (not clean void)) 05/15/2024 2:38 PM EDT 05/15/2024 Comment:Urine, Rando Narrative [facility] - 05/17/2024 5:06 PM EDT Performed at: 01 - [facility] [place] [address], [address], [place] [id number] Operations Technician: Bhupendra Rehman MD, Phone: [phone] us Agnes Garcia MD LAB MICROBIOLOGY - GENERAL ORD ERABLES Final Result [facility] [address] [place] [address] from Last 3 Months or Most Recently Relevant to Health Maintenance Insurance [facility] NON PCC [facility] NON PCC [facility] Care Teams Long Term Care Administrator Relationship Specialty Start Date End Date Agnes Garcia MD [address] [place] [id number] PCP - General Pediatrics 05/03/25
--- OUTSIDE RECORDS SUMMARY | 2025-08-16 19:56 | XMS_ITS | Clinical Summary ---
Author Organization [facility] ity Address [address] [place] [address] Care Team Providers Care Kiln Loader Name Role Phone Brenna Wilder WARP SPOOLER Primary Care Provider Social History Tobacco Use Types Packs/Day Years [...] age to complete this topic Care Teams Kiln Loader Relationship Specialty Start Date End Date Brenna Wilder FNP [address] [place] [address] [place] [phone] PCP - General 04/04/23
[2025-08-16] MEDS: Magnesium Hydrox/Alum Hydrox 30 ML ORAL.SUSP PO (21:04)
[2025-08-16 21:18] LABS: IDNOW Serial# 55D5AD1C; Strep A Nucleic Acid Negative (Negative)
[2025-08-16 21:18] LABS: Appearance Urine Clear; Glucose Urine UA Negative (Negative); PH 5.5 (5.0-9.0); Specific Gravity - Urine 1.010 (1.005-1.025)
== END 2025-08-16 23:59 | disposition home or self-care (01) ==
PROVIDERS: Registered Nurse Emergency; Emergency Provider Emergency Medicine
DX: J10.1 Influenza due to other identified influenza virus with other respiratory manifestations (principal)
CPT/HCPCS: 36415; 80053; 81001; 83605; 84702; 85025; 87040; 87651; 96361; 96365; 96375; 99284; J0131; J2405